=== PATIENT | male | born 1950 | race Caucasian/White ===

== ENCOUNTER → 2022-05-11 | Outpatient (CLI) | payer OTHER, MEDICARE ==
[~2022-05-11] MED LIST: ASPI-255 PO; ATOR40TA75 PO; CLOP75TA99 PO; ECOT81TA5 PO; METO1TAB32 PO; NITR4TASL SL; RAMI1CAP24 PO
== END ==
LOC: M LABSMTC 09:16
PROVIDERS: ATTEND Internal Medicine Gastroenterology
DX: Z01.818 Encounter for other preprocedural examination (principal); Z11.52 Encounter for screening for COVID-19

== ENCOUNTER 2022-05-16 06:51 | Day surgery (SDC) | payer OTHER ==
[~2022-05-16] VITALS: Ht 175.3 cm; Wt 100.2 kg
[~2022-05-16 06:51] MED LIST changes: +NS 1,000 ML IV ONE
[2022-05-16] MEDS ORDERED: LIDOCAINE 2% 100MG/5ML SDV (FOR ANES.) As Ordered ONE (06:59)
[2022-05-16] MEDS ORDERED: propofoL 200 MG/20 ML VIAL As Ordered ONE (06:59)
[2022-05-16 08:50] VITALS: BP 124/72
== END 2022-05-16 09:03 | disposition home or self-care (01) ==
LOC: M OPP 06:51
PROVIDERS: ATTEND Internal Medicine Gastroenterology
DX: Z12.11 Encounter for screening for malignant neoplasm of colon (principal); Z86.010 Personal history of colon polyps; D12.3 Benign neoplasm of transverse colon; K64.0 First degree hemorrhoids; K57.30 Diverticulosis of large intestine without perforation or abscess without bleeding; Z79.01 Long term (current) use of anticoagulants; Z79.02 Long term (current) use of antithrombotics/antiplatelets; Z79.82 Long term (current) use of aspirin; Z79.899 Other long term (current) drug therapy; F17.200 Nicotine dependence, unspecified, uncomplicated; I10 Essential (primary) hypertension; E78.00 Pure hypercholesterolemia, unspecified; I25.2 Old myocardial infarction; Z95.5 Presence of coronary angioplasty implant and graft

== ENCOUNTER → 2024-02-15 | Outpatient (CLI) | payer MEDICARE, OTHER ==
[~2024-02-15] MED LIST changes: -NS 1,000 ML IV ONE; -RAMI1CAP24 PO; +RAMI5CAP60 PO
== END ==
LOC: M RAD 07:39
PROVIDERS: ATTEND Internal Medicine
DX: Z12.2 Encounter for screening for malignant neoplasm of respiratory organs (principal); F17.210 Nicotine dependence, cigarettes, uncomplicated

== ENCOUNTER → 2025-02-26 | Outpatient (CLI) | payer MEDICARE, OTHER | LOC: M RAD 10:38 | PROVIDERS: ATTEND Internal Medicine | DX: F17.210 Nicotine dependence, cigarettes, uncomplicated (principal) ==